=== PATIENT | female | born 2000 | race Caucasian/White ===

== ENCOUNTER 2021-01-05 09:11 | Emergency (ER) | payer OTHER ==
[~2021-01-05] VITALS: Ht 165.1 cm; Wt 69.1 kg
[2021-01-05] MEDS ORDERED: FLON1SPR NARES (09:51)
[2021-01-05] MEDS ORDERED: AFRI0.058 (09:52)
[2021-01-05] MEDS ORDERED: SUDA240T2 PO (09:52)
[2021-01-05] MEDS ORDERED: ZITHTAB PO (09:52)
[2021-01-05 10:00] VITALS: BP 131/71
== END 2021-01-05 10:08 | disposition home or self-care (01) ==
LOC: M ED 09:11
DX: H65.02 Acute serous otitis media, left ear (principal)

== ENCOUNTER 2022-04-29 22:56 | Emergency (ER) | payer OTHER ==
[~2022-04-29] VITALS: Ht 165.1 cm; Wt 62.3 kg
[2022-04-29 22:56] VITALS: BP 146/85
[~2022-04-29 22:56] MED LIST: FLON1SPR NARES; OXYM15SP2; SUDA240T2 PO; ZITHTAB PO
[2022-04-29] MEDS ORDERED: IBUPROFEN 600MG TAB PO ONE (23:55)
== END 2022-04-30 01:23 | disposition home or self-care (01) ==
LOC: M ED 22:56
DX: S60.221A Contusion of right hand, initial encounter (principal); W22.8XXA Striking against or struck by other objects, initial encounter; Z79.899 Other long term (current) drug therapy